=== PATIENT | female | born 1970 | race African-American/Black ===

== ENCOUNTER 2017-06-24 08:25 | Inpatient (IN) | payer OTHER ==
[~2017-06-24] VITALS: Ht 170.2 cm; Wt 97.5 kg
[2017-06-24] MEDS ORDERED: FLE10 PO (08:50)
[2017-06-24] MEDS ORDERED: ETODOLAC500 MG PO (08:51)
[2017-06-24] MEDS ORDERED: APAP500 MG PO (08:52)
[2017-06-24 12:58] LABS: CHOLESTEROL/HDL RATIO 2.6; MAGNESIUM 1.6 mg/dL (1.8-2.4); PHOSPHOROUS 2.8 mg/dL (2.5-4.9)
[2017-06-24 13:08] VITALS: BP 111/77
[2017-06-24 13:18] LABS: FREE T4 1.26 ng/dL (0.76-1.46); FREE THYROXINE INDEX 3.2 ug/dL (1.4-4.5); T4(THYROXINE) 8.3 ug/dL (4.7-13.3)
[2017-06-24 13:40] LABS: T3 TOTAL 0.86 ng/mL
[2017-06-24 17:37] LABS: microscopic required? NO
[2017-06-24 17:44] LABS: UA SPECIFIC GRAVITY 1.025 (1.005-1.035); urine erythrocyte NEGATIVE (NEGATIVE)
[2017-06-24 17:56] LABS: AMPHETAMINE QUAL UR NONE DETECTED (NEG <=1000)
[2017-06-24 18:16] VITALS: BP 116/73
[2017-06-24 23:06] VITALS: BP 109/77
[2017-06-25 06:04] VITALS: BP 99/66
[2017-06-25 06:15] LABS: CALCIUM 8.7 mg/dL (8.5-10.1); CARBON DIOXIDE 26.3 mmol/L (21-32); CHLORIDE SERUM 107 mmol/L (98-107); CREATININE SERUM 0.8 mg/dL (0.6-1.0); GFR1 > 60 mL/min; GLUCOSE SERUM 84 mg/dL (74-106); MAGNESIUM 2.6 mg/dL (1.8-2.4); POTASSIUM SERUM 3.8 mmol/L (3.5-5.1); SODIUM SERUM 141 mmol/L (136-145)
[2017-06-25 06:29] LABS: BASOPHIL % 0.4 % (0-2); PLATELET COUNT 236 x10^3mcL (130-400); RED CELL DISTRIBUTION WIDTH 14.3 % (11.5-14.5)
[2017-06-25 10:08] VITALS: BP 114/70
[2017-06-25 10:35] VITALS: BP 116/67
[2017-06-25 14:09] VITALS: BP 110/63
[2017-06-25 17:27] VITALS: BP 102/65
[2017-06-25 20:03] VITALS: BP 93/57
[2017-06-26 06:17] VITALS: BP 98/39
[2017-06-26 06:37] LABS: BASOPHIL % 0.6 % (0-2); PLATELET COUNT 230 x10^3mcL (130-400); RED CELL DISTRIBUTION WIDTH 14.9 % (11.5-14.5)
[2017-06-26 09:42] VITALS: BP 102/69
[2017-06-26 11:55] VITALS: BP 124/76
[2017-06-26] MEDS ORDERED: METHOCARBAMOL500 MG PO (13:40)
[2017-06-26 13:47] VITALS: BP 124/76
[2017-06-26 14:08] VITALS: BP 107/72
== END 2017-06-26 14:35 | disposition home or self-care (01) | DRG 552 ==
LOC: ED 08:25 → DU 10:26
PROVIDERS: ADMIT Family Medicine Sports Medicine
DX: M54.5 Low back pain (principal); M54.16 Radiculopathy, lumbar region; E83.42 Hypomagnesemia; D64.9 Anemia, unspecified; E66.9 Obesity, unspecified; Z68.33 Body mass index [BMI] 33.0-33.9, adult
CPT/HCPCS: 84439; J1100; J1885; J2060; J2270; J2405; J2800; J3475; J3490; J7030; Q0092; Q0162; Q0163